=== PATIENT | female | born 1985 | race Caucasian/White ===

== ENCOUNTER → 2019-05-12 11:14 | Outpatient (CLI) | payer BC, SELFPAY ==
--- NOTE | ~2019-05-12 | XR_ITS ---
EXAMINATION: XR abdomen/kub 1V INDICATION: Unspecified abdominal pain, low back pain TECHNIQUE: Supine views of the abdomen were obtained on 2 radiographs. COMPARISON: None FINDINGS: The bowel gas pattern is normal. There are no dilated loops of bowel. The visualized lung b ases are clear. There is a moderate amount of stool in the rectum. The visualized osseous structures are unremarkable. IMPRESSION: 1. No radiographic correlate for the patient's symptoms. Reviewed, dictated and finalized at location A. DATION SCIENTIST
--- NOTE | ~2019-05-12 | XR_ITS ---
EXAMINATION: XR sacrum coccyx min 2V INDICATION: Low back pain TECHNIQUE: Three views of the sacrum and coccyx are obtained. COMPARISON: None available FINDINGS: Bone alignment is normal. There is no fracture. A moderate volume of stool is noted in the rectum. IMPRESSION: 1. No acute osseous abnormality. Reviewed, dictated and finalized at location A. RITY GUARDS DISPATCHER
== END ==
PROVIDERS: PCP Nurse Practitioner Family; Visit Provider Nurse Practitioner Family
DX: R10.9 Unspecified abdominal pain (principal); M54.5 Low back pain
CPT/HCPCS: 72220; 74018

== ENCOUNTER 2023-03-14 16:07 | Emergency (ER) | payer OTHER, SELFPAY ==
--- NOTE | 2023-03-14 16:13 | ED.URI ---
HPI - URI/Sore Throat General Chief Complaint: Upper Respiratory Infection Stated Complaint: Sore Throat;Congestion;Cough Time Seen by Provider: 03/14/23 16:27 Source: patient, RN notes reviewed and old records reviewed Mode of arrival: ambulatory Limitations: no limitations History of Present Illness HPI Narrative: 37-year-old female presents to the [facility] with complaints of cough, congestion and a sore throat that started 1 week ago. Has tried [id number]-[id number] products with minimal relief. Took at home COVID test which she reports is negative Related Data Home Medications Medication Instructions Recorded Confirmed tretinoin 0.025 % topical cream 1 applic topical DIRECTED 03/14/23 03/14/23 Allergies Allergy/AdvReac Type Severity Reaction Status Date / Time Iodinated Contrast Media Allergy Unknown facial Verified 03/14/23 16:14 swelling Review of Systems Review of Systems: All systems reviewed & are unremarkable except as noted in HPI and below Constitutional: Constitutional: Reports no additional constitutional complaints Eyes: Eyes: Reports no additional eye complaints ENT: Reports as per HPI and Reports sore throat Cardiovascular: Cardiovascular: Reports no additional cardiovascular complaints, Denies chest pain and Denies dyspnea Respiratory: Respiratory: Reports as per HPI, Denies chest congestion, Reports cough and Denies dyspnea Gastrointestinal: Gastrointestinal: Reports no additional gastrointestinal complaints, Denies abdominal pain, Denies nausea and Denies vomiting Musculoskeletal: Musculoskeletal: Reports no additional musculoskeletal complaints Integumentary/Breasts: Skin/Breast: Reports system reviewed and no additional complaints, except as docu Neurologic: Reports system reviewed and no additional complaints, except as documented Psychiatric: Psychiatric: Reports no additional psychiatric complaints Allergic/Immunologic: Allergic/Immunologic: Reports no additional allergic/immunologic complaints [facility] Past Medical History Medical History (Updated 03/14/23 @ 16:37 by Autumn Amezquita APRN) Thyroid disease Vaginal delivery x 4 Family History Family History Mother Hypertension Family history of lung cancer, Onset Age: 47 Other Diabetes mellitus Family history of coronary artery disease Family history of elevated blood lipids Social History Social History Smoking status: Never smoker Second hand tobacco smoke exposure: No Alcohol intake: never Substance use: never Substance use type: does not use Lack of Transportation: No Lack of Food: Never True Current Housing: I Have Housing Concerned About Future Housing: No Difficulty Paying Gas/Electric Bills: No Difficulty Paying for Meds: No Currently Unemployed: No Education: Bachelor's Degree Difficulty w/ Childcare or Family Care: No Living arrangements: with family Occupation/Education: occupation Gender identity (if verbalized by the patient): Female Sexual Orientation (if Verbalized by the Patient): Straight or Heterosexual Spiritual care concerns: No Comments At the time of my signature, I reviewed and agree with the nursing past medical, surgical, social, and family history. There is no relevant family history pertinent to the patient complaint. Exam Const: General: cooperative, healthy appearing, comfortable, no acute distress, well developed, alert and well nourished Nutritional Appearance: well nourished Orientation/consciousness: patient oriented x3 Limitations: no limitations HENMT: Head: normal to inspection Ears: hearing grossly normal bilaterally, external ears normal, TM's normal bilaterally, EAC's normal, mastoids normal and no periauricular adenopathy Face/Nose/Sinus: Normal external nose present, Normal nares present, Normal nasal mucous membranes
[2023-03-14 16:17] VITALS: BP 109/69; PULSE 87; RESP 16; TEMP 37.2; O2SAT 100
== END 2023-03-14 16:41 | disposition home or self-care (01) ==
PROVIDERS: Emergency Provider Nurse Practitioner; PCP Physician Assistant
DX: R09.82 Postnasal drip (principal); J02.9 Acute pharyngitis, unspecified
CPT/HCPCS: 87081; 87804; 87880; 99213; G0463

== ENCOUNTER 2024-03-12 08:17 | Outpatient (CLI) | payer OTHER, SELFPAY ==
--- NOTE | 2024-03-12 | ECHO_ITS ---
Patient Info Name: Janki Elias Age: 38 years : 1985 Gender: Female Ht: 62 in Wt: 185 lbs BSA: 1.95 m2 HR: 93 bpm BP: 112 / 70 mmHg Heart Rhythm: Sinus Rhythm Technical Quality: Good Exam Date: 03/12/2024 8:48 AM Exam Location: Echo Lab Patient Status: Outpatient Admit Date: 03/12/2024 Staff Ordering Physician: ReyesSoha PA-C Water And Fire Technician: Surinder Melara RDCS Attending Provider: ReyesSoha PA-C Exam Type: CA echo doppler color flow Study Info Indications - Palpitations Complete two-dimensional, color flow and Doppler transthoracic echocardiogram is performed. Summary 1. Complete two-dimensional, color flow and Doppler transthoracic echocardiogram is performed. 2. Normal LV and RV function . Trace TR with Estimated PA pressure 37 mmHg. Left Ventricular Outflow Tract Name Value Normal LVOT 2D LVOT Diameter 2.0 cm LVOT Doppler LVOT Peak Velocity 105 cm/s LVOT Peak Gradient 4 mmHg LVOT Mean Gradient 3 mmHg LVOT VTI 19 cm LVOT VTI/AV VTI Ratio 0.8 LVOT Stroke Volume 61 ml LVOT CO 5.8 l/min LVOT CI 3.0 l/min/m2 Pulmonic Valve Name Value Normal RVOT Doppler RVOT Peak Gradient 3 mmHg PV Doppler PV Peak Velocity 91 cm/s PV Peak Gradient 3 mmHg Mitral Valve Name Value Normal MV Doppler MV Decel [place] 950 cm/s2 MV PHT 22 ms MV Area (PHT) 10.1 cm2 4.0-5.0 MV Diastolic Function MV E Peak Velocity 72 cm/s MV A Peak Velocity 93 cm/s MV E/A 0.8 MV Decel Time 75 ms MV Annular TDI MV Septal e' Velocity 10.2 cm/s >=8.0 MV E/e' (Septal) 7.0 <=8.0 MV Lateral e' Velocity 16.4 cm/s >=10.0 MV E/e' (Lateral) 4.4 <=8.0 MV e' Average 13.33 MV E/e' (Average) 5.7 Tricuspid Valve Name Value Normal TV Regurgitation Doppler TR Peak Velocity 284 cm/s TR Peak Gradient 32 mmHg Estimated PAP/RSVP RA Pressure 5 mmHg <=5 PA Systolic Pressure 37 mmHg <36 RV Systolic Pressure 37 mmHg <36 TV Annular TDI TV Lateral Ngozi s' Velocity 13.3 cm/s 9.5-18.7 Aorta Name Value Normal Ascending Aorta Ao Root Diameter (MM) 2.5 cm Ao Root Diam Index (MM) 1.3 cm/m2 Ao Sinotub [place]unction Diameter 2.7 cm 2.3-2.9 Aortic Valve Name Value Normal AV Doppler AV Peak Velocity 135 cm/s AV Peak Gradient 7 mmHg AV Mean Gradient 4 mmHg AV VTI 25 cm AV Area (Cont Eq VTI) 2.5 cm2 >=3.0 AV Area (Cont Eq Emmanuel) 2.5 cm2 AV V1/V2 Ratio 0.78 AV Regurgitation 2D LVOT Area 3.2 cm2 Ventricles Name Value Normal LV Dimensions 2D/MM IVS Diastolic Thickness (2D) 0.8 cm 0.6-1.0 LVID Diastole (2D) 4.2 cm 3.8-5.2 LVIW Diastolic Thickness (2D) 1.1 cm 0.6-0.9 LVID Systole (2D) 2.6 cm 2.2-3.5 LVOT Diameter 2.0 cm LV Mass (2D Cubed) 127.67 g 67.00-162.00 LV Mass Index (2D Cubed) 65 g/m2 43-95 Relative Wall Thickness (2D) 0.53 LV Fractional Shortening/Ejection Fraction 2D/MM LV Fractional Shortening (2D) 37 % 27-45 LV EF (2D Teicholz) 68 % 54-74 LV Diastolic Volume (4C MOD) 65 ml LV EF (4C MOD) 52 % LV Diastolic Volume (2C MOD) 63 ml LV EF (2C MOD) 62 % LV Diastolic Volume (BP MOD) 64 ml 46-106 LV Diastolic Volume Index (BP MOD) 33 ml/m2 29-61 LV Systolic Volume (BP MOD) 29 ml 14-42 LV Systolic Volume Index (BP MOD) 15 ml/m2 8-24 LV EF (BP MOD) 55 % 54-74 LV Diastolic Length (4C) 7.1 cm LV Systolic Length (4C) 5.8 cm LV Stroke Volume (4C MOD) 34 ml Atria Name Value Normal LA Dimensions LA Dimension (MM) 3.0 cm 2.7-3.8 LA Volume (4C A-L) 26 ml LA Volume (BP A-L) 31 ml RA Dimensions RA Area (4C) 10.9 cm2 <=18.0 Report Signatures
== END 2024-03-12 08:18 | disposition home or self-care (01) ==
PROVIDERS: PCP Physician Assistant; Visit Provider Physician Assistant
DX: R00.2 Palpitations (principal)
CPT/HCPCS: 93242; 93306

== ENCOUNTER 2024-11-26 12:35 | Outpatient (CLI) | payer OTHER, SELFPAY ==
--- NOTE | ~2024-11-26 | US_ITS ---
EXAMINATION: US abdomen limited DATE: 11/26/2024 12:51 INDICATION: Right upper quadrant abdominal pain TECHNIQUE: Multiple grayscale and Doppler ultrasound images of the abdomen were obtained. COMPARISON: None FINDINGS: The pancreatic head and body are normal in appearance. The pancreatic tail is not visualized. Liver has normal echogenicity and contour, with a smooth surface. No liver lesion identified. No intrahepatic biliary duct dilation suspected. Portal venous flow was seen in the hepatopetal, normal direction and has normal Doppler waveform. The gallbladder is normal in appearance. There is no cholelithiasis. The common bile duct measures 4 mm, which is normal. Sonographic Hu sign was reported as negative by the toxicology supervisor. IMPRESSION: 1. Normal right upper quadrant ultrasound. Reviewed, dictated and finalized at location A.
== END 2024-11-26 12:36 | disposition home or self-care (01) ==
PROVIDERS: PCP Physician Assistant; Visit Provider Physician Assistant
DX: R10.11 Right upper quadrant pain (principal)
CPT/HCPCS: 76705

== ENCOUNTER 2024-12-17 10:38 | Outpatient (CLI) | payer OTHER, SELFPAY ==
--- NOTE | ~2024-12-17 | US_ITS ---
EXAMINATION: US venous doppler LE RT DATE: 12/17/2024 11:17 INDICATION: Right lower limb pain TECHNIQUE: Grayscale ultrasound images without and with compression and Doppler ultrasound images of the right lower extremity veins were obtained. COMPARISON: None. FINDINGS: The visualized portions of right common femoral vein, profunda (deep) femoral vein, femoral vein, popliteal vein, peroneal trunk, posterior tibial veins, peroneal veins, gastrocnemius vein and greater saphenous vein outflow are patent. IMPRESSION: 1. No deep venous thrombosis in the right lower limb. Reviewed, dictated and finalized at location A.
--- OUTSIDE RECORDS SUMMARY | 2024-12-17 10:47 | XMS_ITS | Clinical Summary ---
Author Organization [facility] Address [address] [place] [address] Care Team Providers Care Supervisor Rework Name Role Phone Tracie Soha MERINO Primary Care Pr ovider Allergies Active Allergy Reactions Criticality Noted Date Comments Iodinated Contrast Media Swelling Medium 04/08/2013 Penicillins Other (See comments) Low 04/08/2013 Medications norgestimate-et hinyl estradiol (ORTHO TRI-CYCLEN, 28,) 0.18/0.215/0.25 mg-35 mcg (28) per tablet take 1 tablet by oral route every day 0 0 6 Active ALPRAZolam (XANAX) 0.25 mg tablet Take 1 tablet (0.25 mg total) by mouth 3 (three) times a day as needed 3 Active azithromycin (ZITHROMAX) 250 mg tablet TAKE 2 TABLETS BY MOUTH ON DAY 1, AND THEN TAKE 1 TABLET BY MOUTH ONCE A DAY ON DAY 2 THROUGH DAY 5 4 Active benzonatate (TESSALON) 200 mg capsule 4 Active predniSONE (DELTASONE) 10 mg tablet Take 5 tabs (50mg) daily for 2 days, then take 4 tabs (40mg) daily for 2 days. Continue to decrease by 1 tab (10mg) every 2 days until gone. 30 tablet 4 Active albuterol HFA (PROVENTIL HFA,VENTOLIN HFA,PROAIR HFA) 90 mcg/actuation inhaler Inhale 2 puffs every 6 (six) hours as needed for wheezing or shortness of breath 1 each 4 Active Active Problems Problem Noted Date Diagnosed Date NSVT (nonsustained ventricular tachycardia) 08/16 Assessment & Plan (09/06/2020 2:15 PM CDT): Symptomatic nonsustained ventricular tachycardia occurring in young otherwise healthy female with no signs or symptoms of underlying heart disease. 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 Need to exclude structural heart disease to obtain echo. Assuming that that is normal which I suspect it will be, then prognosis is good and would only be directed at suppression of symptoms. She has been asymptomatic since June and prefers to not endure any daily medical therapies unless necessary so if echo looks normal as symptoms remain at [place] then we will pursue expectant approach. If treatment is ever needed for symptomatic purposes then diltiazem at low dose would be a reasonable option to start with. - echo Anxiety 06/07/2014 Overview (06/27/2016): Anxiety Previous child with Trisomy, antepartum 04/08/19 14 Immunizations Immunization Administration Dates Next Due Influenza, Quadrivalent, Split, Intramuscular Family History Medical History Relation Name Comments Heart disease Father Heart disease Maternal Grandmother Depression Mother Depression; Relation Name Status Comments Father Maternal Grandmother Mother Social History Tobacco Use Types Packs/Day Years Used Date Smoking Tobacco: Never Alcohol Use Standard Drinks/Week Comments Yes 0 (1 standard drink = 0.6 oz pur e alcohol) Comments Unknown Sex and Gender Information Value Date Recorded Sex Assigned at Not on file Legal Sex Female 4:23 AM EQUIPMENT VALIDATION SPECIALIST Gender Identity Not on file Sexual Orientation Not on file Obstetrics History Last Filed Vital Signs Vital Sign Reading Time Taken Comments Blood Pressure 106/68 03/31/2023 4:43 PM EQUIPMENT VALIDATION SPECIALIST Pulse 126 03/31/2023 4:43 PM EQUIPMENT VALIDATION SPECIALIST Temperature 37.8 C (100 F) 03/31/2023 4:43 PM EQUIPMENT VALIDATION SPECIALIST Respiratory Rate 24 03/31/2023 4:43 PM EQUIPMENT VALIDATION SPECIALIST Oxygen Saturation 95% 03/31/2023 4:43 PM EQUIPMENT VALIDATION SPECIALIST Inhaled Oxygen Concentration - - Weight 83.9 kg (185 lb) 03/31/2023 4:43 PM EQUIPMENT VALIDATION SPECIALIST Height 160 cm (5' 3) 03/31/2023 4:43 PM EQUIPMENT VALIDATION SPECIALIST Body Mass Index 32.77 03/31/2023 4:43 PM EQUIPMENT VALIDATION SPECIALIST Plan of Treatment Health Maintenance Due Date Last Done Comments Breast Cancer Screening-Mammogram 1985 Cervical Cancer Screening 1985 Depression Screening 1985 Hepatitis C Screening 1985 DTaP/Tdap/Td Vaccine (1 - Tdap) 09/09/1994 Varicella Vaccines (1 of 2 - 13+ 2-dose series) 09/09/1996 Hepatitis B Screening 09/09/2001 Regular Well Visit/Exam 18-64 09/09/2001 HPV Vaccines (1 - 3-dose SCD M series) 09/09/2010 Influenza Vaccine (#1) 2024 12/15/2014 Pneumococcal vaccine <65 Aged Out No longer eligible based on patient's age to complete this topic Insurance [facility] CHOICE PLUS [facility] H[facility]/PPO Address: [address] [address] [place] [address] [facility] CHOICE PLUS [facility] HMO/PPO Address: [address] [address] [place] [address] [facility] H[facility]/PPO Address: [address] [place] [address] Care Teams Supervisor Rework Relationship Specialty Start Date End Date Soha Hodges PA PCP - General Physician Lode Miner Blasting 07/07/20
--- OUTSIDE RECORDS SUMMARY | 2024-12-17 10:47 | XMS_ITS | Clinical Summary ---
Author Organization [employer] [address] Address [address] [address] [place] [address] Phone Care Team Providers Care Retail Attendant Name Role Phone Unavailable Primary Care Provider Unavailabl e Social History Tobacco Use Types Packs/Day Years Used Date Smoking Tobacco: Never Assessed Comments Yes Sex and Gender Information Value Date Recorded Sex Assigned at Not on file Legal Sex Female 6:10 AM ACQUISITION COST ESTIMATOR Gender Identity Not on file Sexual Orientation Not on file Plan of Treatment Health Maintenance Due Date Last Done Comments DTAP/TDAP/TD VACCINES (1 - Tdap) 09/09/2002 HEPATITIS B VACCINES (1 of 3 - 19+ 3-dose series) 08/16 HPV/Cotest (21-29) 09/09/2004 HPV VACCINES (1 - 3-dose SCDM series) 09/09/2010 CERVICAL CANCER SCREENING 09/09/2013 HPV/Cotest (30-65) 09/09/2013 PAP SMEAR 09/09/2013 BREAST CANCER SCREENING 2023 INFLUENZA VACCINE (#1) 2024 12/15/2014 RSV VACCINE (60+ or ) (1 - 1-dose 75+ series) 09/09/2058
--- OUTSIDE RECORDS SUMMARY | 2024-12-17 10:47 | XMS_ITS | Clinical Summary ---
Author Organization [facility] [employer] Address [address] [place] [address] Care Team Providers Care Grain Elevator Superintendent Name Role Phone Unavailable Primary Care Provider Unavailabl e Source Comments [facility],non-owned Affiliates and Associated Physician Practices is amultiple site organization consisting of ambulatory clinics and hospital sitesin [place], [place], [place] and [place]. This disclosure is being madepursuant to the Care Everywhere program and may not contain all information available regarding this patient. Last updated 17.[facility] [employer] Allergies Active Allergy Reactions Criticality Noted Date Comments Contrast-Iodinated Agents For Ct/Other 04/08/2013 Penicillins 04/08/2013 Active Problems Problem Noted Date Diagnosed Date Encounter for supervision of other normal pregna ncy 04/08/2013 Overview (01/22/2015): Large for dates 04/08/2013 Previous child with Trisomy 13, antepartum 04/08 Resolved Problems Problem Noted Date Diagnosed Date Resolved Date Uterine size date discrepancy 04/08/2013 04/08/2013 Family History Medical History Relation Name Comments Hypertension Mother Relation Name Status Comments Mother Social History Tobacco Use Types Packs/Day Years Used Date Smoking Tobacco: Never Alcohol Use Standard Drinks/Week Comments No 0 (1 standard drink = 0.6 oz pur e alcohol) Comments No Sex and Gender Information Value Date Recorded Sex Assigned at Not on file Legal Sex Female 2:19 PM TOLL RELIEF OPERATOR Gender Identity Not on file Sexual Orientation Not on file Plan of Treatment Health Maintenance Due Date Last Done Comments LIPID TESTING 1985 MAMMOGRAM 1985 HIV SCREENING 09/09/1998 HEPATITIS C SCREENING 09/05/2001 DTAP/TDAP/TD VACCINES (1 - Tdap) 09/09/2002 HEPATITIS B VACCINE (1 of 3 - 19+ 3-dose series) 09/09/2002 PAP SMEAR 09/09/2004 HPV VACCINE (1 - 3-dose SCDM series) 09/09/2010 DEPRESSION SCREENING 03/17/2024 COVID-19 VACCINE (1 - 2023-2 5 season) 2024 INFLUENZA VACCINE (#1) 2024 ZOSTER VACCINE (1 of 2) 09/09/2033 HIB VACCINE Aged Out No longer eligi ble based on patient's age to complete this topic MENINGOCOCCAL (Group B) VACC INE SHARED DECISION-MAKING Aged Out No longer eligibl e based on patient's age to complete this topic MENINGOCOCCAL GROUPS A/C/Y/W VACCINE Aged Out No longer eligible b ased on patient's age to complete this topic PNEUMOCOCCAL VACCINE Aged Out No long er eligible based on patient's age to complete this topic Insurance [facility] COUNT INCLUDES THE [facility]
--- OUTSIDE RECORDS SUMMARY | 2024-12-17 10:47 | XMS_ITS | Encounter Summary ---
Author Organization [facility] Address [address] [place] [address] Care Team Providers Care Knitter Machine Name Role Phone Unavailable Primary Care Provider Unavailabl e Encounter Details Date Type Department Care Team (Late st Contact Info) Description 07/22/2024 Lab Requisition [facility] - DermPath Lab [address] [place] [id number] Bing Gonzales MD [address] [facility] [address] [place] [address] Social History Tobacco Use Types Packs/Day Years Used Date Smoking Tobacco: Never Alcohol Use Standard Drinks/Week Comments No 0 (1 standard drink = 0.6 oz pur e alcohol) Comments No Sex and Gender Information Value Date Recorded Sex Assigned at Not on file Legal Sex Female 2:19 PM COIN PURSE FRAMER Gender Identity Not on file Sexual Orientation Not on file documented as of this encounter Plan of Treatment Not on file documented as of this encounter Procedures Procedure Name Priority Date/Time Associated Diagnosis Comments DERMATOPATHOLOGY Routine 07/22/2024 11:1 1 AM CDT documented in this encounter Results * DERMATOPATHOLOGY (07/22/2024 11:11 AM CDT) Case Report Dermatopathology Report Case: [id number] Authorizing Provider: Bing Gonzales MD Collected: 07/22/2024 11:11 AM Ordering Location: [facility] - Received: 07/22/2024 04:39 PM DermPath Lab Pathologist: Lindsey Rosas MD Specimen: Skin, back 4:37 PM CDT DERMATOPATHOLOGY LABORATORY Final Diagnosis Specimen A. 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 The specimen consists of a shave biopsy measuring [id number] mm. Jar 0. 4:37 PM CDT DERMATOPATHOLOGY LABORATORY Microscopic Description Specimen A. SKIN, back: There are nests of cytologically bland melanocytes within the dermis. Some of these melanocytes are concentrated around blood vessels and adnexal structures. There are areas in which the melanocytes have a neuroid appearance. 4:37 PM CDT DERMATOPATHOLOGY LABORATORY Disclaimer An external and internal positive and negative controls are appropriate for the histochemical, immunohistochemical and immunofluorescence stain(s) in this case (if any), except where stated explicitly. The performance characteristics of the stain(s) cited in this report were developed and its performance characteristic determined by the Dermatopathology Laboratory at [facility], directed by Dr. Kristi Clements. These tests need not be, and therefore are not, approved by the [place] Food and Drug Administration. The tests are used for clinical purposes. Billing Codes Specimen Charges Stain Charges 06001 1 4:37 PM CDT DERMATOPATHOLOGY LABORATORY Embedded Images 4:37 PM CDT DERMATOPATHOLOGY LABORATORY Pathology/Cytolo gy TISSUE SPECIMEN FROM SKIN / Unknown 07/22/2024 11:11 AM CDT 07/22/2024 4:39 PM CDT us Bing Gonzales MD LAB - PATHOLOGY/CYTOLOGY ORD ERABLES Final Result DERMATOPATHOLOGY LABORATORY [facility] - Department of Dermatology [address], [address] [place] [address], [facility] [phone] documented in this encounter Visit Diagnoses Not on filedocumented in this encounter
--- OUTSIDE RECORDS SUMMARY | 2024-12-17 10:47 | XMS_ITS | Encounter Summary ---
Author Organization [facility] Address [address] [place] [address] Phone Care Team Providers Care Crusher Screen Repairer Name Role Phone Soha Hodges Primary Care Pr ovider Encounter Details Date Type Department Care Team (Latest Contact Info) Description 07/12/2020 Orders Only [facility] Scanning, Provider Social History Tobacco Use Types Packs/Day Years Used Date Smoking Tobacco: Never Alcohol Use Standard Drinks/Week Comments Yes 0 (1 standard drink = 0.6 oz pur e alcohol) Comments Unknown Sex and Gender Information Value Date Recorded Sex Assigned at Not on file Legal Sex Female 4:23 AM GRAIN LOADER Gender Identity Not on file Sexual Orientation Not on file documented as of this encounter Plan of Treatment Not on file documented as of this encounter Procedures Procedure Name Priority Date/Time Associated Diagnosis Comments SCAN - LABS 07/12/2020 documented in this encounter Results * SCAN - LABS (07/12/2020) us Provider Scanning Final Result documented in this encounter Visit Diagnoses Not on filedocumented in this encounter Additional Health Concerns Infection Onset Date Last Indicated Resolved Time COVID: Suspected 03/31/2023 03/31/2023 04/01/2023 3:05 AM GRAIN LOADER documented as of this encounter Care Teams Crusher Screen Repairer Relationship Specialty Start Date End Date Soha Hodges PA PCP - General Physician Cable Tool Driller 07/07/20 documented as of this encounter
--- OUTSIDE RECORDS SUMMARY | 2024-12-17 10:47 | XMS_ITS | Clinical Summary ---
Author Organization [facility] Address [address] [place] [id number] Care Team Providers Care [place] Inspector Name Role Phone Unavailable Primary Care Provider Unavailabl e Social History Tobacco Use Types Packs/Day Years Used Date Smoking Tobacco: Never Assessed Comments Unknown Sex and Gender Information Value Date Recorded Sex Assigned at Not on file Legal Sex Female 7:56 PM CDT Gender Identity Not on file Sexual Orientation Not on file Plan of Treatment Health Maintenance Due Date Last Done Comments Cervical Cancer Screening Pa p Smear (Age 30 to 64) Every 3 Years 1983 Annual Physical 09/09/1986 Hepatitis C 09/09/2001 DTaP, Tdap and Td Vaccines ( 1 - Tdap) 09/09/2002 Hepatitis B Vaccines (1 of 3 - 19+ 3-dose series) 09/09/2002 HPV Vaccines (1 - 3-dose SCD M series) 09/09/2010 Cervical Cancer Screening Pa p with HPV Testing (Age 30 to 64) Every 5 Years 09/09/2013 Cervical Cancer Screening with HPV 09/09/2013 Mammogram Screening 2023 COVID-19 Vaccine ( - 2023-2 5 season) 2024 Meningococcal B Vaccine Aged Out No l onger eligible based on patient's age to complete this topic Meningococcal Vaccine Aged Out No laci zain eligible based on patient's age to complete this topic Pneumococcal Vaccine: Pediat rics (0 to 5 Years) and At-Risk Patients (6 to 49 Years) Aged Out No longer eligible b ased on patient's age to complete this topic RSV Immunizations Under 20 Months Aged Out No longer eligible based on patient's age to complete this topic
== END 2024-12-17 10:39 | disposition home or self-care (01) ==
PROVIDERS: PCP Physician Assistant; Visit Provider Obstetrics & Gynecology
DX: M79.661 Pain in right lower leg (principal)
CPT/HCPCS: 93971